=== PATIENT | female | born 1955 | race Caucasian/White ===

== ENCOUNTER 2016-08-24 09:11 | Outpatient (CLI) | payer BC | END 2016-08-24 20:38 | disposition home or self-care (01) | LOC: SMA 09:11 | PROVIDERS: ATTEND Obstetrics & Gynecology Gynecology | DX: Z12.31 Encounter for screening mammogram for malignant neoplasm of breast (principal) | CPT/HCPCS: 77067; G0202 ==

== ENCOUNTER 2017-08-30 08:21 | Outpatient (CLI) | payer BC | END 2017-08-30 20:58 | disposition home or self-care (01) | LOC: SMA 08:21 | PROVIDERS: ATTEND Obstetrics & Gynecology Gynecology | DX: Z12.31 Encounter for screening mammogram for malignant neoplasm of breast (principal) | CPT/HCPCS: 77067 ==